=== PATIENT | female | born 1945 | race Caucasian/White ===

== ENCOUNTER 2016-05-03 10:20 | Observation (INO) | payer MEDICARE, BC ==
--- OUTSIDE RECORDS SUMMARY | 2016-05-03 10:24 | XMS REPORT | Continuity of Care Document ---
:1945 Author Organization [facility] ([facility]) Address [address] [place] [address] Phone [phone] Care Team Providers Name Role Phone Jacinta Mac Primary Care Provider [phone] Source Comments This disclosure is being made pursuant to the Care Everywhere program, applicable federal and state laws, and may not contain all informaitonavailable regarding this patient.[facility] ([facility]) Active Allergies and Adverse Reactions Allergen Noted Date Severity Reactions Comments Codeine 04/29/2010 OTHER Lorazepam 04/14/2010 OTHER Went francesco Current Medications Prescription Sig. Disp. Refills Start Date End Date Status gabapentin (NEURONTIN) Take 2,100 mg by Active 300 mg capsule mouth daily Taking 600 mg in the am 600 mg at noon and 900 mg in the pm clonazePAM (KLONOPIN) 1 Take 1 mg by Active mg tablet mouth at bedtime Taking 1 tab bid and 1.5 tabs qhs. LACTOBACILLUS RHAMNOSUS Take 1 Tab by Active GG (PROBIOTIC PO) mouth daily. MULTI-VITAMIN PO Take 1 Tab by Active mouth daily. POLYETHYLENE GLYCOL Take by mouth 2 Active 3350 (MIRALAX PO) times daily. 1 scoop ERGOCALCIFEROL, VITAMIN Take 2,000 Units Active D2, (VITAMIN D PO) by mouth daily DOCUSATE SODIUM (COLACE Take 2 tablets Active PO) by mouth 2 times daily 100 mg. traMADol 50 mg tablet Take 100 mg by Active mouth every 8 hours . VENLAFAXINE 75 mg XR Take 75 mg by 08/14/2014 Active capsule mouth daily VENLAFAXINE 150 mg XR Take 150 mg by 08/14/2014 Active capsule mouth daily VOLTAREN 1 % topical 03/25/2015 Active gel lamoTRIgine 200 mg at bedtime . 04/03/2015 Active tablet ranitidine 150 mg Take 1 tablet 60 tablet 6 05/26/2015 Active tablet (150 mg total) by mouth 2 times daily. lubiprostone (AMITIZA) Take 1 capsule 15 capsule 0 05/26/2015 Active 24 mcg capsule (24 mcg total) by mouth at bedtime Take with food and water. valACYclovir 500 mg 08/12/2015 Active tablet OXcarbazepine 150 mg 07/14/2015 Active tablet baclofen 10 mg tablet Take 1 tablet 30 tablet 1 08/27/2015 Active (10 mg total) by mouth at bedtime. TENS Units sandra 1 Device 3 times 1 Each 0 08/27/2015 Active daily as needed. Active Problems Problem Noted Date Lactose intolerance 08/20/2015 Fructose intolerance 08/20/2015 Epigastric abdominal pain 05/21/2015 Ovarian cyst 08/01/2011 Overview: Stable over one year Bipolar disorder 02/24/2011 Constipation 02/24/2011 Bile-induced gastritis 02/24/2011 Intestinal bacterial overgrowth 02/24/2011 Most Recent Encounters Date Type Specialty Providers Description 04/20/2016 Telephone Food and Nutrition Chinyere Sharma RD LD 04/20/2016 Telephone Med GI/Hepatology Elvia Clancy RN Chief Comp: Nutritional Intake 03/02/2016 Office Visit Anesthesiology Reed Reyes MD Subj: Appointment Canceled 02/25/2016 Office Visit Med GI/Hepatology Corina Wright MD Chief Comp: Patient Reported Reason For Visit Social History Tobacco Use Types Packs/Day Years Used Date Never Smoker Smokeless Tobacco: Never Used Tobacco Cessation:Counseling Given: Yes Comments: Alcohol Use Drinks/Week oz/Week Comments No Last Filed Vital Signs Vital Sign Reading Time Taken Blood Pressure 152/77 10/09/2015 1:23 PM CDT Pulse 74 10/09/2015 11:27 AM CDT Temperature 36.1 C (97 F) 10/09/2015 11:27 AM CDT Respiratory Rate 18 11/20/2010 5:31 PM CDT Height 1.575 m (5' 2") 10/09/2015 11:27 AM CDT Weight 45.9 kg (101 lb 3.1 oz) 10/09/2015 11:27 AM CDT Body Mass Index 18.5 10/09/2015 11:27 AM CDT Oxygen Saturation 98% 10/09/2015 1:23 PM CDT Plan of Care Health Maintenance Due Date Last Done Comments Hepatitis B Vaccine (1 of 3 - Primary 1945 Series) Tdap Vaccine 10/27/1954 Lipid Disorder Screening 10/27/1961 Td Vaccine 10/27/1961 Zoster Vaccine 2003 Osteoporosis Screening (DXA Bone 10/27/2008 Density) Pneumococcal Vaccine (1 of 2 - PCV13) 10/27/2008 Influenza Vaccine: Seasonal (#1) 10/13/2015 Mammogram 11/01/2015 10/31/2014 (Previously completed), 10/31/2014, 10/25/2013 (Previously completed) Colonoscopy 11/25/2020 11/25/2010 Results from Last 3 Months Not on file
--- OUTSIDE RECORDS SUMMARY | 2016-05-03 10:25 | XMS REPORT | Summary of Care ---
:1945 Author Organization [facility] Address [address] [place] [address] Care Team Providers Name Role Phone Jacinta Mac Primary Care Physician Encounter Date(s): 08/07/15 - 08/07/15 [facility] Marlee Alberts, [address] [place], [place] [address] Discharge Diagnosis: Lumbar spondylosis Discharge Disposition: 01 Discharged to Home or Self Care Attending Physician: Jose L Lanza MD Referring Physician: Dorian Kyle MD Vital Signs Most recent to oldest [Reference Range]: 1 Blood Pressure [90-130/60-90 mmHg] 126/74mmHg (08/07/15 9:51 AM) Mean Arterial Pressure, Cuff 91 mmHg (08/07/15 9:51 AM) Most recent to oldest [Reference Range]: 1 Height/Length Measured 157 cm (08/07/15 9:51 AM) Weight Dosing 44.90 kg1 (08/07/15 10:02 AM) Weight Measured 44.9 kg (08/07/15 9:51 AM) BSA Measured 1.41 m2 (08/07/15 9:51 AM) Body Mass Index Measured 18.22 kg/m2 (08/07/15 9:51 AM) 1Result Comment: This result was because the dosing weight was either not entered or it is>30 days old. This result is based off: Weight Measured August 07, 2015 09:51:00 CDT by Chiqui Muro LPN Problem List Condition Effective Dates Status Health Status Informant Bacterial overgrowth Active syndrome(Confirmed) Colitis(Confirmed) Active Fibromyalgia(Confirmed) Active Fracture of wrist(Confirmed)1 2007 Active IBS - Irritable bowel Active syndrome(Confirmed) Miscellaneous(Confirmed)2 Active 1right [id number] overgrowth of small intestine Allergies, Adverse Reactions, Alerts Substance Reaction Severity Status codeine Trouble Breathing Active LORazepam Active Medications Carafate 1 g oral tablet 1 tab(s), Oral, QID, # 120 tab(s), 0 Refill(s), Start Date: 05/14/15 14:17:00 BUILDING CONSULTANT Start Date: 05/14/15 Stop Date: 08/07/15 Status: Completedciprofloxacin 500 mg oral tablet 1 tab(s), Oral, q12hr, # 14 tab(s), 0 Refill(s), Start Date: 04/24/15 14:13:00 BUILDING CONSULTANT Start Date: 04/24/15 Stop Date: 05/14/15 Status: CompletedclonazePAM 1 mg oral tablet 1.5 tab(s), Oral, HS, 0 Refill(s), Start Date: 09/17/13 10:32:00 CDT Start Date: 09/17/13 Status: OrderedColace 50 mg oral capsule 1 cap(s), Oral, BID Start Date: 03/19/14 Status: OrderedDME - Thumb Spica Splint See Instructions, Diagnosis Code: Length of Need: , # 1 EA, 0 Refill(s), 02/14/14 14:46:00 BUILDING CONSULTANT, Supply Special Instructions: Diagnosis Code: Length of Need: Start Date: 02/14/14 Stop Date: 05/14/15 Status: CompletedDME - Thumb Spica Splint See Instructions, Diagnosis Code: Length of Need: , # 1 EA, 0 Refill(s), 02/14/14 14:46:00 BUILDING CONSULTANT, Supply Special Instructions: Diagnosis Code: Length of Need: Start Date: 02/14/14 Stop Date: 05/14/15 Status: CompletedEffexor XR 150 mg oral capsule, extended release 1 cap(s), Oral, Daily Start Date: 03/19/14 Status: OrderedEffexor XR 75 mg oral capsule, extended release 1 cap(s), Oral, Daily Start Date: 03/19/14 Status: OrderedFlexeril 5 mg oral tablet 1 tab(s), Oral, HS, PRN as needed for muscle spasm, # 30 tab(s), 1 Refill(s), Start Date: 07/16/15 10:39:00 CDT, Pharmacy: [place], [place] Start Date: 07/16/15 Status: OrderedFlexeril 5 mg oral tablet 1 tab(s), Oral, HS, # 10 tab(s), 0 Refill(s), Start Date: 06/24/15 10:24:00 CDT , Pharmacy: [place], [place] Start Date: 06/24/15 Stop Date: 07/16/15 Status: Completedgabapentin 300 mg oral capsule 1 cap(s), Oral, TID, # 90 cap(s), 3 Refill(s), Start Date: 07/16/15 10:38:00 CDT , Pharmacy: [place], [place] Start Date: 07/16/15 Stop Date: 07/29/15 Status: Completedgabapentin 300 mg oral capsule See Instructions, take 1 - 2 Capsule (300MG) by oral route every 6 hours, 0 Refill(s) Special Instructions: take 1 - 2 Capsule (300MG) by oral route every 6 hours Start Date: 09/17/13 Stop Date: 07/16/15 Status: Discontinuedgabapentin 300 mg oral capsule 5 cap(s), Oral, Daily, Take 1 tab in the morning, 1 tab in the afternoon, and 3 tabs at bedtime daily., # 150 cap(s), 3 Refill(s), Start Date: 07/29/15 12:07: 24 CDT, Pharmacy: [place], [place] Special Instructions: Take 1 tab in the morning, 1 tab in the afternoon, and 3 tabs at bedtime daily. Start Date: 07/29/15 Status: OrderedHYDROcodone-acetaminophen 5 mg-325 mg oral tablet 2 tab(s), Oral, q4hr, # 12 tab(s), 0 Refill(s), Start Date: 05/14/15 14:18:00 BUILDING CONSULTANT Start Date: 05/14/15 Stop Date: 05/16/15 Status: CompletedlamoTRIgine 200 mg oral tablet 1.5 tab(s), Oral, Daily, 0 Refill(s), Start Date: 09/17/13 10:33:00 CDT Start Date: 09/17/13 Status: Orderedmeloxicam 15 mg oral tablet 1 tab(s), Oral, Daily, PRN PAIN, # 30 tab(s), 0 Refill(s), Start Date: 02/20/14 16:12:55 BUILDING CONSULTANT, Pharmacy: [place], [place] Start Date: 02/20/14 Stop Date: 06/21/14 Status: Completedmeloxicam 15 mg oral tablet 1 tab(s), Oral, Daily, PRN PAIN, # 30 tab(s), 0 Refill(s), Start Date: 02/18/14 13:20:40 BUILDING CONSULTANT, Pharmacy: [place], [place] Start Date: 02/18/14 Stop Date: 02/20/14 Status: Completedmeloxicam 15 mg oral tablet 1 tab(s), Oral, Daily, PRN pain, # 90 tab(s), 3 Refill(s), Start Date: 06/21/14 11:34:57 CDT, Pharmacy: [place], [place] Start Date: 06/21/14 Stop Date: 04/24/15 Status: Completedmeloxicam 15 mg oral tablet 1 tab(s), Oral, Daily, # 10 tab(s), 0 Refill(s), Start Date: 02/14/14 14:52:00 BUILDING CONSULTANT, Pharmacy: [place], [place] Start Date: 02/14/14 Stop Date: 02/18/14 Status: CompletedmetroNIDAZOLE 500 mg oral tablet 1 tab(s), Oral, Daily, # 10 tab(s), 0 Refill(s), Start Date: 04/24/15 14:13:00 BUILDING CONSULTANT Start Date: 04/24/15 Stop Date: 05/14/15 Status: CompletedMiraLax oral powder for reconstitution 17 gm=, Oral, BID, dissolve in water before taking Special Instructions: dissolve in water before taking Start Date: 03/19/14 Status: OrderedOXcarbazepine 150 mg oral tablet 1 tab(s), Oral, BID, # 60 tab(s), 0 Refill(s), Start Date: 07/16/15 9:42:00 CDT Start Date: 07/16/15 Stop Date: 08/07/15 Status: CompletedoxyCODONE-acetaminophen 5 mg-325 mg oral tablet 0 Refill(s), Start Date: 04/24/15 14:12:00 BUILDING CONSULTANT Start Date: 04/24/15 Stop Date: 05/14/15 Status: CompletedpredniSONE 5 mg oral tablet See Instructions, 2 tabs po daily for 1 weeks then 1 tab daily for 3 weeks, # 28 tab(s), 0 Refill(s), Start Date: 03/25/15 11:36:00 BUILDING CONSULTANT, Pharmacy: [facility] [place] [place] Special Instructions: 2 tabs po daily for 1 weeks then 1 tab daily for 3 weeks Start Date: 03/25/15 Stop Date: 05/08/15 Status: DiscontinuedPriLOSEC 40 mg oral delayed release capsule 1 cap(s), Oral, Daily, # 30 cap(s), 0 Refill(s), Start Date: 05/14/15 14:18:00 BUILDING CONSULTANT Start Date: 05/14/15 Status: OrderedProbiotic Formula oral capsule 2 cap(s), Oral, Daily Start Date: 03/19/14 Status: OrderedtraMADol 50 mg oral tablet 1 tab(s), Oral, Daily, PRN for pain Start Date: 09/27/13 Stop Date: 08/07/15 Status: DiscontinuedtraMADol 50 mg oral tablet 1 tab(s), Oral, q6hr interval, PRN for pain, # 90 tab(s), 0 Refill(s), Start Date: 08/07/15 11:08:48 CDT Start Date: 08/07/15 Status: OrderedtraMADol 50 mg oral tablet 1 tab(s), Oral, q6hr interval, PRN for pain, # 5 tab(s), 0 Refill(s), Start Date : 08/07/15 11:06:00 CDT Start Date: 08/07/15 Stop Date: 08/07/15 Status: DiscontinuedVitamin D3 2000 intl units oral tablet 1 tab(s), Oral, Daily Start Date: 03/19/14 Status: OrderedVoltaren 1% topical gel 1 kendrick, Topical, QID, PRN for pain, not to exceed 8 grams/day/single joint of upper extremities. Apply grams to effected area, # 100 gm, 0 Refill(s), Start Date: 03/25/15 11:37:55 BUILDING CONSULTANT, Pharmacy: [place], [place] Special Instructions: not to exceed 8 grams/day/single joint of upper extremities. Apply grams to effected area Start Date: 03/25/15 Status: OrderedVoltaren 1% topical gel 1 kendrick, Topical, QID, PRN for pain, # 100 gm, 0 Refill(s), Start Date: 05/14/15 10:50:00 BUILDING CONSULTANT Start Date: 05/14/15 Stop Date: 06/24/15 Status: CompletedVoltaren Topical 1% topical gel 1 kendrick, Topical, QID, PRN for pain, not to exceed 8 grams/day/single joint of upper extremities. Apply grams to effected area, # 100 gm, 0 Refill(s), Start Date: 02/14/14 14:53:00 BUILDING CONSULTANT, Pharmacy: [place], [place] Special Instructions: not to exceed 8 grams/day/single joint of upper extremities. Apply grams to effected area Start Date: 02/14/14 Stop Date: 03/25/15 Status: CompletedZofran ODT 4 mg oral tablet, disintegrating 1 tab(s), Oral, q8hr interval, PRN nausea/vomiting, # 10 tab(s), 0 Refill(s), Start Date: 05/14/15 14:17:00 BUILDING CONSULTANT Start Date: 05/14/15 Stop Date: 08/07/15 Status: Completed Results No data available for this section Immunizations No data available for this section Procedures Procedure Date Related Diagnosis Body Site Epidural Steroid Injection - Lumbar1 03/21/14 Cholecystectomy 1958 1auto-populated from documented surgical case Social History No data available for this section Assessment and Plan No data available for this section
--- OUTSIDE RECORDS SUMMARY | 2016-05-03 10:25 | XMS REPORT | Summary of Care ---
:1945 Author Organization [facility] Address [address] [place] [address] Care Team Providers Name Role Phone Jacinta Mac Primary Care Physician Encounter Date(s): 08/07/15 - 08/07/15 [facility] Marlee Alberts, [address] [place], [place] [address] Discharge Diagnosis: Lumbar spondylosis Discharge Disposition: 01 [...] Irritable bowel Active syndrome(Confirmed) Miscellaneous(Confirmed)2 Active 1right [id number] overgrowth of small intestine Allergies, Adverse Reactions, Alerts Substance Reaction Severity Status codeine Trouble Breathing Active LORazepam Active Medications Carafate 1 g oral tablet 1 tab(s), Oral, QID, # 120 tab(s), 0 Refill(s), Start Date: 05/14/15 14:17:00 ASSET SPECIALIST Start Date: 05/14/15 Stop Date: 08/07/15 Status: Completedciprofloxacin 500 mg oral tablet 1 tab(s), Oral, q12hr, # 14 tab(s), 0 Refill(s), Start Date: 04/24/15 14:13:00 ASSET SPECIALIST Start Date: 04/24/15 Stop Date: 05/14/15 Status: CompletedclonazePAM 1 mg oral tablet 1.5 tab(s), Oral, HS, 0 Refill(s), Start Date: 09/17/13 10:32:00 CDT Start Date: 09/17/13 Status: OrderedColace 50 mg oral capsule 1 cap(s), Oral, BID Start Date: 03/19/14 Status: OrderedDME - Thumb Spica Splint See Instructions, Diagnosis Code: Length of Need: , # 1 EA, 0 Refill(s), 02/14/14 14:46:00 ASSET SPECIALIST, Supply Special Instructions: Diagnosis Code: Length of Need: Start Date: 02/14/14 Stop Date: 05/14/15 Status: CompletedDME - Thumb Spica Splint See Instructions, Diagnosis Code: Length of Need: , # 1 EA, 0 Refill(s), 02/14/14 14:46:00 ASSET SPECIALIST, Supply Special Instructions: Diagnosis Code: Length of [...] Refill(s), Start Date: 07/16/15 10:39:00 CDT, Pharmacy: [place], [place] Start Date: 07/16/15 Status: OrderedFlexeril 5 mg oral tablet 1 tab(s), Oral, HS, # 10 tab(s), 0 Refill(s), Start Date: 06/24/15 10:24:00 CDT , Pharmacy: [place], [place] Start Date: 06/24/15 Stop Date: 07/16/15 Status: Completedgabapentin 300 mg oral capsule 1 cap(s), Oral, TID, # 90 cap(s), 3 Refill(s), Start Date: 07/16/15 10:38:00 CDT , Pharmacy: [place], [place] Start Date: 07/16/15 Stop Date: 07/29/15 [...] Start Date: 07/29/15 12:07: 24 CDT, Pharmacy: [place], [place] Special Instructions: Take 1 tab in the morning, 1 tab in the afternoon, and 3 tabs at bedtime daily. Start Date: 07/29/15 Status: OrderedHYDROcodone-acetaminophen 5 mg-325 mg oral tablet 2 tab(s), Oral, q4hr, # 12 tab(s), 0 Refill(s), Start Date: 05/14/15 14:18:00 ASSET SPECIALIST Start Date: 05/14/15 Stop Date: 05/16/15 Status: CompletedlamoTRIgine 200 mg oral tablet 1.5 tab(s), Oral, Daily, 0 Refill(s), Start Date: 09/17/13 10:33:00 CDT Start Date: 09/17/13 Status: Orderedmeloxicam 15 mg oral tablet 1 tab(s), Oral, Daily, PRN PAIN, # 30 tab(s), 0 Refill(s), Start Date: 02/20/14 16:12:55 ASSET SPECIALIST, Pharmacy: [place], [place] Start Date: 02/20/14 Stop Date: 06/21/14 Status: Completedmeloxicam 15 mg oral tablet 1 tab(s), Oral, Daily, PRN PAIN, # 30 tab(s), 0 Refill(s), Start Date: 02/18/14 13:20:40 ASSET SPECIALIST, Pharmacy: [place], [place] Start Date: 02/18/14 Stop Date: 02/20/14 Status: Completedmeloxicam 15 mg oral tablet 1 tab(s), Oral, Daily, PRN pain, # 90 tab(s), 3 Refill(s), Start Date: 06/21/14 11:34:57 CDT, Pharmacy: [place], [place] Start Date: 06/21/14 Stop Date: 04/24/15 Status: Completedmeloxicam 15 mg oral tablet 1 tab(s), Oral, Daily, # 10 tab(s), 0 Refill(s), Start Date: 02/14/14 14:52:00 ASSET SPECIALIST, Pharmacy: [place], [place] Start Date: 02/14/14 Stop Date: 02/18/14 Status: CompletedmetroNIDAZOLE 500 mg oral tablet 1 tab(s), Oral, Daily, # 10 tab(s), 0 Refill(s), Start Date: 04/24/15 14:13:00 ASSET SPECIALIST Start Date: 04/24/15 Stop Date: 05/14/15 Status: [...] tablet 0 Refill(s), Start Date: 04/24/15 14:12:00 ASSET SPECIALIST Start Date: 04/24/15 Stop Date: 05/14/15 Status: CompletedpredniSONE 5 mg oral tablet See Instructions, 2 tabs po daily for 1 weeks then 1 tab daily for 3 weeks, # 28 tab(s), 0 Refill(s), Start Date: 03/25/15 11:36:00 ASSET SPECIALIST, Pharmacy: [facility] [place], [place] Special Instructions: 2 tabs po daily for 1 weeks then 1 tab daily for 3 weeks Start Date: 03/25/15 Stop Date: 05/08/15 Status: DiscontinuedPriLOSEC 40 mg oral delayed release capsule 1 cap(s), Oral, Daily, # 30 cap(s), 0 Refill(s), Start Date: 05/14/15 14:18:00 ASSET SPECIALIST Start Date: 05/14/15 Status: OrderedProbiotic Formula oral [...] gm, 0 Refill(s), Start Date: 03/25/15 11:37:55 ASSET SPECIALIST, Pharmacy: [place], [place] Special Instructions: not to exceed 8 grams/day/single joint of upper extremities. Apply grams to effected area Start Date: 03/25/15 Status: OrderedVoltaren 1% topical gel 1 kendrick, Topical, QID, PRN for pain, # 100 gm, 0 Refill(s), Start Date: 05/14/15 10:50:00 ASSET SPECIALIST Start Date: 05/14/15 Stop Date: 06/24/15 Status: CompletedVoltaren Topical 1% topical gel 1 kendrick, Topical, QID, PRN for pain, not to exceed 8 grams/day/single joint of upper extremities. Apply grams to effected area, # 100 gm, 0 Refill(s), Start Date: 02/14/14 14:53:00 ASSET SPECIALIST, Pharmacy: [place], [place] Special Instructions: not to exceed 8 grams/day/single joint of upper extremities. Apply grams to effected area Start Date: 02/14/14 Stop Date: 03/25/15 Status: CompletedZofran ODT 4 mg oral tablet, disintegrating 1 tab(s), Oral, q8hr interval, PRN nausea/vomiting, # 10 tab(s), 0 Refill(s), Start Date: 05/14/15 14:17:00 ASSET SPECIALIST Start Date: 05/14/15 Stop Date: 08/07/15 Status: [...]
--- OUTSIDE RECORDS SUMMARY | 2016-05-03 10:25 | XMS REPORT | Summary of Care ---
:1945 Author Organization [facility] Address [address] [place] [address] Care Team Providers Name Role Phone Jacinta Mac Primary Care Physician Encounter Date(s): 04/02/16 - 04/02/16 [facility] Marlee Alberts, [address] [place], [place] [address] Discharge Disposition: 01 Discharged to Home or Self Care Attending Physician: Dorian Kyle MD Referring Physician: Unknown Physician Vital Signs Most recent to oldest [Reference Range]: 1 Peripheral Pulse Rate [60-100 bpm] 76 bpm (04/02/16 8:58 AM) Blood Pressure [90-130/60-90 mmHg] 130/80mmHg (04/02/16 8:58 AM) Mean Arterial Pressure, Cuff 97 mmHg (04/02/16 8:58 AM) Height/Length Measured 157 cm (04/02/16 8:58 AM) Weight Dosing 48.60 kg1 (04/02/16 9:03 AM) Weight Measured 48.6 kg (04/02/16 8:58 AM) BSA Measured 1.46 m2 (04/02/16 8:58 AM) Body Mass Index Measured 19.72 kg/m2 (04/02/16 8:58 AM) 1Result Comment: This result was because the dosing weight was either not entered or it is>30 days old. This result is based off: Weight Measured April 02, 2016 08:58:00 EVENT DESIGNER by Toyin Toscano CMA Problem List Condition Effective Dates Status Health Status Informant Bacterial overgrowth Active syndrome(Confirmed) Colitis(Confirmed) Active Fibromyalgia(Confirmed) Active Fracture of wrist(Confirmed)2007 Active IBS - Irritable bowel Active syndrome(Confirmed) Miscellaneous(Confirmed)2 Active 1right [id number] overgrowth of small intestine Allergies, Adverse Reactions, Alerts Substance Reaction Severity Status codeine Trouble Breathing Active LORazepam Active Medications Carafate 1 g oral tablet 1 tab(s), Oral, QID, # 120 tab(s), 0 Refill(s), Start Date: 05/14/15 14:17:00 EVENT DESIGNER Start Date: 05/14/15 Stop Date: 08/07/15 Status: Completedciprofloxacin 500 mg oral tablet 1 tab(s), Oral, q12hr, # 14 tab(s), 0 Refill(s), Start Date: 04/24/15 14:13:00 EVENT DESIGNER Start Date: 04/24/15 Stop Date: 05/14/15 Status: CompletedclonazePAM 1 mg oral tablet 1.5 tab(s), Oral, HS, 0 Refill(s), Start Date: 09/17/13 10:32:00 CDT Start Date: 09/17/13 Status: OrderedColace 50 mg oral capsule 1 cap(s), Oral, BID Start Date: 03/19/14 Status: OrderedDME - Thumb Spica Splint See Instructions, Diagnosis Code: Length of Need: , # 1 EA, 0 Refill(s), 02/14/14 14:46:00 EVENT DESIGNER, Supply Start Date: 02/14/14 Stop Date: 05/14/15 Status: CompletedDME - Thumb Spica Splint See Instructions, Diagnosis Code: Length of Need: , # 1 EA, 0 Refill(s), 02/14/14 14:46:00 EVENT DESIGNER, Supply Start Date: 02/14/14 Stop Date: 05/14/15 Status: CompletedEffexor XR 150 mg oral capsule, extended release 1 cap(s), Oral, Daily Start Date: 03/19/14 Status: OrderedEffexor XR 75 mg oral capsule, extended release 1 cap(s), Oral, Daily Start Date: 03/19/14 Stop Date: 01/22/16 Status: CompletedFlexeril 5 mg oral tablet 1 tab(s), Oral, HS, PRN as needed for muscle spasm, # 30 tab(s), 1 Refill(s), Start Date: 07/16/15 10:39:00 CDT, Pharmacy: [place], [place] Start Date: 07/16/15 Stop Date: 12/24/15 Status: DiscontinuedFlexeril 5 mg oral tablet 1 tab(s), Oral, HS, # 10 tab(s), 0 Refill(s), Start Date: 06/24/15 10:24:00 CDT , Pharmacy: [place], [place] Start Date: 06/24/15 Stop Date: 07/16/15 Status: Completedgabapentin 100 mg oral capsule 1 cap(s), Oral, BID, 1 cap in the AM and 1 cap in the afternoon, # 60 cap(s), 0 Refill(s), Start Date: 09/29/15 11:39:00 CDT, Pharmacy: [facility], [place] Start Date: 09/29/15 Stop Date: 03/11/16 Status: Completedgabapentin 300 mg oral capsule 1 cap(s), Oral, TID, # 90 cap(s), 3 Refill(s), Start Date: 07/16/15 10:38:00 CDT , Pharmacy: [place], [place] Start Date: 07/16/15 Stop Date: 07/29/15 Status: Completedgabapentin 300 mg oral capsule 5 cap(s), Oral, Daily, Take 1 cap in the morning, 1 cap in the afternoon, and 3 cap at bedtime daily., # 150 cap(s), 3 Refill(s), Start Date: 09/29/15 11:31:58 CDT, Pharmacy: [facility], [place] Start Date: 09/29/15 Status: Orderedgabapentin 300 mg oral capsule 6 cap(s), Oral, Daily, Take 1.5 tab in the morning, 1.5 tab in the afternoon, and 3 tabs at bedtime daily., # 180 cap(s), 3 Refill(s), Start Date: 09/26/15 12 :59:14 CDT, Pharmacy: [facility], [place] Start Date: 09/26/15 Stop Date: 09/29/15 Status: Completedgabapentin 300 mg oral capsule See Instructions, take 1 - 2 Capsule (300MG) by oral route every 6 hours, 0 Refill(s) Start Date: 09/17/13 Stop Date: 07/16/15 Status: Discontinuedgabapentin 300 mg oral capsule 5 cap(s), Oral, Daily, Take 1 tab in the morning, 1 tab in the afternoon, and 3 tabs at bedtime daily., # 150 cap(s), 3 Refill(s), Start Date: 07/29/15 12:07: 24 CDT, Pharmacy: [place], [place] Start Date: 07/29/15 Stop Date: 09/26/15 Status: CompletedGaviscon 2 tab(s), Chewed, QIDPCHS, 0 Refill(s), Start Date: 01/22/16 9:12:00 EVENT DESIGNER Start Date: 01/22/16 Status: Orderedginger BID, 0 Refill(s), Start Date: 01/22/16 9:13:00 EVENT DESIGNER Start Date: 01/22/16 Status: OrderedHYDROcodone-acetaminophen 5 mg-325 mg oral tablet 2 tab(s), Oral, q4hr, # 12 tab(s), 0 Refill(s), Start Date: 05/14/15 14:18:00 EVENT DESIGNER Start Date: 05/14/15 Stop Date: 05/16/15 Status: CompletedKenalog (office) 40 units, Intra-articular, ONETIME, First Dose: 04/02/16 10:00:00 EVENT DESIGNER, Stop Date : 04/02/16 10:00:00 EVENT DESIGNER, Diagnosis: Pain in joint involving multiple sites Start Date: 04/02/16 Stop Date: 04/02/16 Status: CompletedlamoTRIgine 200 mg oral tablet 1.5 tab(s), Oral, Daily, 0 Refill(s), Start Date: 09/17/13 10:33:00 CDT Start Date: 09/17/13 Status: Orderedmeloxicam 15 mg oral tablet 1 tab(s), Oral, Daily, PRN PAIN, # 30 tab(s), 0 Refill(s), Start Date: 02/20/14 16:12:55 EVENT DESIGNER, Pharmacy: [place], [place] Start Date: 02/20/14 Stop Date: 06/21/14 Status: Completedmeloxicam 15 mg oral tablet 1 tab(s), Oral, Daily, PRN PAIN, # 30 tab(s), 0 Refill(s), Start Date: 02/18/14 13:20:40 EVENT DESIGNER, Pharmacy: [place], [place] Start Date: 02/18/14 Stop Date: 02/20/14 Status: Completedmeloxicam 15 mg oral tablet 1 tab(s), Oral, Daily, PRN pain, # 90 tab(s), 3 Refill(s), Start Date: 06/21/14 11:34:57 CDT, Pharmacy: [place], [place] Start Date: 06/21/14 Stop Date: 04/24/15 Status: Completedmeloxicam 15 mg oral tablet 1 tab(s), Oral, Daily, # 10 tab(s), 0 Refill(s), Start Date: 02/14/14 14:52:00 EVENT DESIGNER, Pharmacy: [place], [place] Start Date: 02/14/14 Stop Date: 02/18/14 Status: CompletedMetoprolol Succinate ER 50 mg oral tablet, extended release 1 tab(s), Oral, Daily, # 30 tab(s), 0 Refill(s), Start Date: 03/11/16 10:22:00 EVENT DESIGNER Start Date: 03/11/16 Status: OrderedmetroNIDAZOLE 500 mg oral tablet 1 tab(s), Oral, Daily, # 10 tab(s), 0 Refill(s), Start Date: 04/24/15 14:13:00 EVENT DESIGNER Start Date: 04/24/15 Stop Date: 05/14/15 Status: CompletedMiraLax oral powder for reconstitution 17 gm=, Oral, BID, dissolve in water before taking Start Date: 03/19/14 Status: OrderedOXcarbazepine 150 mg oral tablet 1 tab(s), Oral, BID, # 60 tab(s), 0 Refill(s), Start Date: 07/16/15 9:42:00 CDT Start Date: 07/16/15 Stop Date: 08/07/15 Status: CompletedoxyCODONE-acetaminophen 5 mg-325 mg oral tablet 0 Refill(s), Start Date: 04/24/15 14:12:00 EVENT DESIGNER Start Date: 04/24/15 Stop Date: 05/14/15 Status: CompletedpredniSONE 5 mg oral tablet See Instructions, 2 tabs po daily for 1 weeks then 1 tab daily for 3 weeks, # 28 tab(s), 0 Refill(s), Start Date: 03/25/15 11:36:00 EVENT DESIGNER, Pharmacy: [place], [place] Start Date: 03/25/15 Stop Date: 05/08/15 Status: DiscontinuedPriLOSEC 40 mg oral delayed release capsule 1 cap(s), Oral, Daily, # 30 cap(s), 0 Refill(s), Start Date: 05/14/15 14:18:00 EVENT DESIGNER Start Date: 05/14/15 Stop Date: 01/22/16 Status: DiscontinuedProbiotic Formula oral capsule 2 cap(s), Oral, Daily [...] gm, 0 Refill(s), Start Date: 03/25/15 11:37:55 EVENT DESIGNER, Pharmacy: [place], [place] Start Date: 03/25/15 Status: OrderedVoltaren 1% topical gel 1 kendrick, Topical, QID, PRN for pain, # 100 gm, 0 Refill(s), Start Date: 05/14/15 10:50:00 EVENT DESIGNER Start Date: 05/14/15 Stop Date: 06/24/15 Status: CompletedVoltaren Topical 1% topical gel 1 kendrick, Topical, QID, PRN for pain, not to exceed 8 grams/day/single joint of upper extremities. Apply grams to effected area, # 100 gm, 0 Refill(s), Start Date: 02/14/14 14:53:00 EVENT DESIGNER, [place] Start Date: 02/14/14 Stop Date: 03/25/15 Status: CompletedZofran ODT 4 mg oral tablet, disintegrating 1 tab(s), Oral, q8hr interval, PRN nausea/vomiting, # 10 tab(s), 0 Refill(s), Start Date: 05/14/15 14:17:00 EVENT DESIGNER Start Date: 05/14/15 Stop Date: 08/07/15 Status: [...]
[2016-05-03 10:40] LABS: Hemoglobin 13.1 gm/dL (12.5-16.0); Mean Cell Volume 91.8 fl (78-100); Mean Corpuscular Hemoglobin 30.8 pg (27-31); Mean Corpuscular Hgb Conc 33.6 g/dl (32-36); Mean Platelet Volume 8.6 fl (6.0-9.5); Neutrophil # 2.6 K/mm3 (1.3-6.0); Neutrophil % 54.1 % (42-75.0); Platelet Count 285 K/mm3 (150-450); Red Blood Count 4.25 M/mm3 (4.2-5.4); Red Cell Distribution Width 12.9 % (11.5-14.0); White Blood Count 4.7 K/mm3 (4.0-10.5)
[2016-05-03 10:54] LABS: ALT 28 U/L (19-67); AST 25 U/L (0-48); Albumin * 4.1 gm/dl (3.4-5.0); Alkaline Phosphatase * 61 U/L (50-170); Amylase * 60 U/L (25-115); Anion Gap 10.5 mmol/L (6.8-13.8); BUN/Creatinine Ratio 16.9 (9.0-21.6); Bilirubin Direct 0.1 mg/dL (0.0-0.3); Bilirubin, Total 0.3 mg/dL (0.0-1.1); Bilirubin,Indirect 0.2 mg/dL (0.1-0.7); Blood Urea Nitrogen 14 mg/dL (3-23); Calcium * 9.2 mg/dL (7.9-10.9); Carbon Dioxide 32.2 mmol/L (24-32.6); Chloride 95 mmol/L (97-106); Glucose * 79 mg/dL (70-110); Lipase 170 U/L (73-393); Potassium 3.7 mmol/L (3.4-4.6); Sodium 134 mmol/L (132-142); Total Protein 7.8 gm/dL (6.2-8.2)
--- OUTSIDE RECORDS SUMMARY | 2016-05-03 13:55 | XMS REPORT | Continuity of Care Document ---
:1945 Author Organization [facility] ([facility]) Address [address] [place] [address] Phone [phone] Care Team Providers Name Role Phone Jacinta Mac Primary Care Provider [phone] Source Comments This disclosure is being made pursuant to the Care Everywhere program, applicable federal and state laws, and may not contain all informaitonavailable regarding this patient.[facility] ([facility]) Active Allergies and Adverse Reactions Allergen Noted [...]
[2016-05-03] MEDS ORDERED: SUCRALFATE 1 G/10 ML UDC PO ONE (15:00)
[2016-05-03] MEDS ORDERED: MAG HYDROX/ALUMINUM HYD/SIMETH 30 ML UDC PO ONE (15:00)
[2016-05-03] MEDS ORDERED: LIDOCAINE HCL 20 ML UDC PO ONE (15:00)
[2016-05-03] MEDS: NORMAL SALINE 1,000 ML IV PRN (15:31)
[2016-05-03] MEDS ORDERED: BENZONATATE 100 MG CAPSULE PO PRN (16:44)
[2016-05-03] MEDS ORDERED: GABAPENTIN 300 MG CAPSULE PO PRN (16:44)
[2016-05-03] MEDS ORDERED: ONDANSETRON HCL 4 MG TABLET PO PRN (16:44)
[2016-05-03] MEDS ORDERED: traMADol HCL 50 MG TABLET PO PRN (16:44)
[2016-05-03] MEDS ORDERED: traZODone HCL 50 MG TABLET PO PRN ×2 (16:46→17:02)
--- NOTE | 2016-05-03 16:58 | HP ---
Chief Complaint - Chief Complaint Date of Service: 05/03/16 Time of Service: 13:00 Chief Complaint: Epigastric pain, headache History of Present Illness: Patient presented to clinic today for an acute sick visit with complaints of feeling "sick" at least 3 days per week. She complains of indigestion, headaches , nausea and insomnia. I completed outpatient bloodwork and an abdominal CT scan which were unremarkable. She returned to clinic and we ultimately made the decision to admit her for overnight observation. - Patient's Past Medical History Patient History - Medical: Anemia, Anxiety, Depression, Fibromyalgia, GERD, Osteoarthritis Patient History - Cardiac/Respiratory: Hypertension Patient History - Cancer: No Hx of Cancer Patient History - Surgical Procedures: Cholecystectomy Patient History - Other: None - Family History Mother Family History - Medical: Rheumatoid Arthritis - Social History Living Situations: spouse Abuse History: No History of abuse Psych History: No pertinent hx Smoking Status: Never smoker Have you smoked in the past 12 months: No Do you dip or chew tobacco: No Patient requests Smoking Cessation Consult: No Initiate information on Smoking Cessation: No Alcohol Use: none Drug Use: none - Immunizations Immunizations Up to Date: Yes Hx Pneumococcal Vaccination: Yes History of Influenza Vaccine: Yes Review Of Systems (GEN) - Review of Systems Generalized/Overall Review: Present: Weakness, Chills, Fatigue. Absent: Fever EENTM: Present: No Symptoms Reported. Absent: Blurred Vision, Double Vision, Ear Pain, Nose Congestion, Throat Pain Respiratory: Present: No Symptoms Reported. Absent: Cough, Shortness of Breath Cardiac: Present: No Symptoms Reported. Absent: Chest Pain, Edema, Palpitations Abdominal: Present: Nausea, Abdominal Pain. Absent: Vomiting, Hematemesis, Constipation, Diarrhea, Melena, Bright blood from rectum Genitourinary: Present: No Symptoms Reported. Absent: Burning Musculoskeletal: Present: No Symptoms Reported Neurological: Present: Headache, Anxiety Skin: Present: No Symptoms Reported Endocrine: Present: No Symptoms Reported Misc: All systems neg except as marked Immunizations: IMMUNIZATION HX Immunizations Up to Date Yes History of Influenza Vaccine Yes Hx Pneumococcal Vaccination Yes Allergies/Adverse Reactions: Allergies Allergy/AdvReac Type Severity Reaction Status Date / Time lorazepam [From Ativan] Allergy Intermediate Other Verified 04/23/15 18:51 codeine Allergy Verified 04/23/15 18:51 Home Medications: HOME MEDICATIONS Gabapentin [Gralise] 900 mg PO Q6H PRN 05/27/12 [Last Taken Unknown] Benzonatate [Tessalon] 200 mg PO TID PRN #30 cap 03/09/15 [Last Taken Unknown] L.acidoph & Paracasei,B.lactis [Probiotic] 1 each PO BID 03/09/15 [Last Taken Unknown] Lamotrigine [Lamictal] 300 mg PO DAILY 03/09/15 [Last Taken Unknown] Polyethylene Glycol 3350 [Miralax] 17 gm PO BID 03/09/15 [Last Taken Unknown] Venlafaxine HCl [Effexor Xr] 150 mg PO DAILY 03/09/15 [Last Taken Unknown] clonazePAM [Klonopin] 1 mg PO BID 03/09/15 [Last Taken Unknown] traMADol HCL [Ultram] 50 mg PO Q6H PRN 03/09/15 [Last Taken Unknown] Metoprolol Succinate [Toprol Xl] 50 mg PO DAILY 05/03/16 [Last Taken Unknown] Omeprazole Magnesium [Prilosec Otc] 20 mg PO DAILY 05/03/16 [Last Taken Unknown] Ondansetron HCl [Zofran] 4 mg PO QID PRN 05/03/16 [Last Taken Unknown] Exam - Exam Vital Signs: Vital Signs - Last Taken Temp 36.4 C L 05/03/16 13:56 Pulse 55 L 05/03/16 13:56 Resp 20 05/03/16 13:56 BP 189/85 05/03/16 13:56 Pulse Ox 98 05/03/16 13:56 Constitutional: Present: Alert, Oriented x3, Cooperative, Mild distress, Thin and frail ENT Exam: Present: normal ENT inspection, hearing grossly normal, moist mucous membranes Eye Exam: bilateral eye: normal inspection, PERRL, EOMI Neck: Present: non-tender, supple, normal inspection Back Exam: Present: normal inspection, no CVA tenderness Respiratory: Present: lungs clear, normal breath sounds, no respiratory distress , no accessory muscle use Cardiovascular/Chest: Present: regular rate, rhythm, no edema, no JVD, no murmur Abdomen: Present: Normal bowel sounds, soft, nondistended, no rebound tenderness , no hepatospenomegaly, no masses, tender - Diffusely tender with palpation; most severe tenderness located in the epigastric region. Absent: guarding, rigidity, rebound tenderness, CVA tenderness, suprapubic tenderness Extremity: Present: normal range of motion, no pedal edema Skin Exam: Present: normal color, warm/dry Neurologic: Present: no motor/sensory deficits, alert, normal mood/affect, oriented x 3 Appearance: Present: appropriate appearance, appropriate insight, neat Eye contact: Present: cooperative, good eye contact, normal speech Thoughts: Present: normal thought pattern, no apparent hallucination Diagnostic Studies: Abnormal Lab Results 05/03/16 05/03/16 Range/Units 10:25 10:25 Monocytes % 10.2 H (0.0-9) % Chloride 95 L (97-106) mmol/L Laboratory Results WBC 4.7 K/mm3 (4.0-10.5) 05/03/16 10:25 RBC 4.25 M/mm3 (4.2-5.4) 05/03/16 10:25 Hgb 13.1 gm/dL (12.5-16.0) 05/03/16 10:25 Hct 39.0 % (37.0-47.0) 05/03/16 10:25 MCV 91.8 fl (78-100) 05/03/16 10:25 MCH 30.8 pg (27-31) 05/03/16 10:25 MCHC 33.6 g/dl (32-36) 05/03/16 10:25 RDW 12.9 % (11.5-14.0) 05/03/16 10:25 Plt Count 285 K/mm3 (150-450) 05/03/16 10:25 MPV 8.6 fl (6.0-9.5) 05/03/16 10:25 Immature Gran % (Auto) 0.40 % (0.001-0.429) 05/03/16 10:25 Immature Gran # (Auto) 0.02 K/mm3 (0.000-0.0310) 05/03/16 10:25 Neutrophils % 54.1 % (42-75.0) 05/03/16 10:25 Lymphocytes % 32.6 % (20-51) 05/03/16 10:25 Monocytes % 10.2 % (0.0-9) H 05/03/16 10:25 Eosinophils % 2.1 % (0.0-3.0) 05/03/16 10:25 Basophils % 0.6 % (0.0-1.0) 05/03/16 10:25 Nucleated RBC % 0.0 k/mm3 (0-1) 05/03/16 10:25 Neutrophils # 2.6 K/mm3 (1.3-6.0) 05/03/16 10:25 Lymphocytes # 1.5 k/mm3 (1.5-3.5) 05/03/16 10:25 Monocytes # 0.5 k/mm3 (0.0-1.0) 05/03/16 10:25 Eosinophils # 0.1 k/mm3 (0.0-0.7) 05/03/16 10:25 Absolute Basophils 0.0 k/mm3 (0.0-0.1) 05/03/16 10:25 Sodium 134 mmol/L (132-142) 05/03/16 10:25 Plasma Sodium 134 mmol/L (130-142) 05/03/16 10:25 Potassium 3.7 mmol/L (3.4-4.6) 05/03/16 10:25 Chloride 95 mmol/L (97-106) L 05/03/16 10:25 Carbon Dioxide 32.2 mmol/L (24-32.6) 05/03/16 10:25 Anion Gap 10.5 mmol/L (6.8-13.8) 05/03/16 10:25 BUN 14 mg/dL (3-23) 05/03/16 10:25 Creatinine 0.83 mg/dL (0.4-1.4) 05/03/16 10:25 Est GFR (Non-Af Amer) 72 mL/min (60-130) 05/03/16 10:25 BUN/Creatinine Ratio 16.9 (9.0-21.6) 05/03/16 10:25 Random Glucose 79 mg/dL (70-110) 05/03/16 10:25 Calcium 9.2 mg/dL (7.9-10.9) 05/03/16 10:25 Total Bilirubin 0.3 mg/dL (0.0-1.1) 05/03/16 10:25 Direct Bilirubin 0.1 mg/dL (0.0-0.3) 05/03/16 10:25 Indirect Bilirubin 0.2 mg/dL (0.1-0.7) 05/03/16 10:25 AST 25 U/L (0-48) 05/03/16 10:25 ALT 28 U/L (19-67) 05/03/16 10:25 Alkaline Phosphatase 61 U/L (50-170) 05/03/16 10:25 Total Protein 7.8 gm/dL (6.2-8.2) 05/03/16 10:25 Albumin 4.1 gm/dl (3.4-5.0) 05/03/16 10:25 Amylase 60 U/L (25-115) 05/03/16 10:25 Lipase 170 U/L (73-393) 05/03/16 10:25 Assessment/Plan - Narrative Narrative: Patient admitted from clinic for overnight observation. CT scan and bloodwork unremarkable. Orders placed for GI cocktail and patient states she has had minimal improvement. Orders placed for IV benadryl, compazine and decadron and monitor for improvement in headache. Continue IVFs. Likely discharge in AM pending improvement in symptoms. - Assessment/Plan (1) Epigastric abdominal pain Problem: Acute (2) Headache Problem: Acute
[2016-05-03] MEDS ORDERED: DEXAMETHASONE SOD PHOSPHATE 10 MG/ML VIAL IV ONE (17:15)
[2016-05-03] MEDS ORDERED: PROCHLORPERAZINE EDISYLATE 5 MG/ML VIAL IV ONE (17:15)
[2016-05-03] MEDS ORDERED: diphenhydrAMINE HCL 50 MG/ML VIAL IV ONE (17:15)
[2016-05-03] MEDS: POLYETHYLENE GLYCOL 3350 119 GM BTL PO SCH (21:47)
[2016-05-03] MEDS: clonazePAM 1 MG TABLET PO SCH (21:54)
[2016-05-03] MEDS: lamoTRIgine 100 MG TABLET PO SCH (21:54)
[2016-05-03] MEDS: LACTOBACILLUS ACIDOPHILUS 100 CAP BTL PO SCH (21:55)
[2016-05-04 00:42] VITALS: BP 141/63
[2016-05-04] MEDS: NORMAL SALINE 1,000 ML IV PRN (04:31)
[2016-05-04] MEDS ORDERED: PANTOPRAZOLE SODIUM 20 MG TABLET.DR PO SCH (07:00)
[2016-05-04] MEDS: LACTOBACILLUS ACIDOPHILUS 100 CAP BTL PO SCH (08:49)
[2016-05-04] MEDS: POLYETHYLENE GLYCOL 3350 119 GM BTL PO SCH (08:49)
[2016-05-04] MEDS: lamoTRIgine 100 MG TABLET PO SCH (08:50)
[2016-05-04] MEDS: clonazePAM 1 MG TABLET PO SCH (08:50)
[2016-05-04] MEDS ORDERED: VENLAFAXINE HCL 150 MG CAP.SR.24H PO SCH (09:00)
[2016-05-04] MEDS ORDERED: METOPROLOL SUCCINATE 50 MG TABLET.SA PO SCH (09:00)
--- NOTE | 2016-05-04 10:09 | DS ---
(1) Epigastric abdominal pain Diagnosis(s): Acute on Chronic Problem: Acute (2) Headache Problem: Acute Description of Stay: ADMISSION DATE: 05.03.2016 DISCHARGE DATE: 05.04.2016 HOSPITAL COURSE: Patient admitted from clinic for overnight observation. CT scan and bloodwork completed prior to admission unremarkable. Patient received a GI cocktail with minimal improvement. Patient was also given a migraine cocktail of IV benadryl, compazine and decadron with some improvement in headache. Patient discharged home in stable condition. Arrangements made for appointment with Dr. Sheridan to discuss having an EGD for further evaluation. Procedures Performed: none Discharge Disposition: Home self care Disposition: Home self-care Condition: Stable Discharge Activity: Activity as tolerated Discharge Diet: Resume usual diet Referrals: Maribel Rose DO [Primary Care Provider] - Problem Oriented Discharge Instructions to Patient/Family: Abdominal Pain, Adult, [id number], Gastroesophageal Reflux Disease, Adult, [id number] Additional Patient Instructions (free text): Please schedule patient to see PCP, Dr. Rose, within the next 1 week on @ 2:15pm. See Dr. Sheridan in his office on , 05.06.2016, at 10:00AM to discuss and schedule an EGD. Clinic is located at [address] [place] [address] Complete Home Medications List: Complete Home Medication List: Gabapentin [Gralise] 900 mg PO Q6H PRN 05/27/12 Benzonatate [Tessalon] 200 mg PO TID PRN #30 cap 03/09/15 L.acidoph & Paracasei,B.lactis [Probiotic] 1 each PO BID 03/09/15 Lamotrigine [Lamictal] 300 mg PO DAILY 03/09/15 Polyethylene Glycol 3350 [Miralax] 17 gm PO BID 03/09/15 Venlafaxine HCl [Effexor Xr] 150 mg PO DAILY 03/09/15 clonazePAM [Klonopin] 1 mg PO BID 03/09/15 traMADol HCL [Ultram] 50 mg PO Q6H PRN 03/09/15 Metoprolol Succinate [Toprol Xl] 50 mg PO DAILY 05/03/16 Omeprazole Magnesium [Prilosec Otc] 20 mg PO DAILY 05/03/16 Ondansetron HCl [Zofran] 4 mg PO QID PRN 05/03/16
== END 2016-05-04 11:30 | disposition home or self-care (01) ==
LOC: LAB 10:20 → MS 13:51
PROVIDERS: ADMIT Internal Medicine; ATTEND Internal Medicine
DX: R10.13 Epigastric pain (principal); R51 Headache
CPT/HCPCS: 36415; 74177; 80048; 80076; 82150; 83690; 85025; 93005; 96374; 96375; G0378

== ENCOUNTER 2016-09-06 11:05 | Emergency (ER) | payer MEDICARE, BC ==
[2016-09-06 11:12] VITALS: BP 137/74
--- NOTE | 2016-09-06 11:32 | ERNOTE ---
Medical Problem HPI - General Chief Complaint: General Assessment Time Seen by Provider: 09/06/16 11:17 Source: patient Exam Limitations: no limitations - Immun/Allergies/Home Medications Immunizations: IMMUNIZATION HX Immunizations Up to Date Yes History of Influenza Vaccine Yes Hx Pneumococcal Vaccination Yes Allergies/Adverse Reactions: Allergies lorazepam [From Ativan] Allergy (Intermediate, Verified 09/06/16 11:12) Other caused aggitation codeine Allergy (Verified 09/06/16 11:12) Home Medications: HOME MEDICATIONS Gabapentin [Gralise] 900 mg PO Q6H PRN 05/27/12 [Last Taken Unknown] Benzonatate [Tessalon] 200 mg PO TID PRN #30 cap 03/09/15 [Last Taken Unknown] L.acidoph,Paracasei, B.lactis [Probiotic] 1 each PO BID 03/09/15 [Last Taken Unknown] Polyethylene Glycol 3350 [Miralax] 17 gm PO BID 03/09/15 [Last Taken Unknown] Venlafaxine HCl [Effexor Xr] 150 mg PO DAILY 03/09/15 [Last Taken Unknown] clonazePAM [Klonopin] 1 mg PO BID 03/09/15 [Last Taken Unknown] lamoTRIgine [Lamictal] 300 mg PO DAILY 03/09/15 [Last Taken Unknown] traMADol HCL [Ultram] 50 mg PO Q6H PRN 03/09/15 [Last Taken Unknown] Metoprolol Succinate [Toprol Xl] 50 mg PO DAILY 05/03/16 [Last Taken Unknown] Omeprazole Magnesium [Prilosec Otc] 20 mg PO DAILY 05/03/16 [Last Taken Unknown] Ondansetron HCl [Zofran] 4 mg PO QID PRN 05/03/16 [Last Taken Unknown] - History of Present History Narrative: Patient fell backward getting up and hit the left side of her chest against a counter. She denies hitting or head, no loss of consciousness. She has had persistent pain in that area, mild at rest, worse with movement, breathing and coughing. She take tramadol at night for neuropathy which only helped a litte Date (Duration): 08/28/16 Review of Systems - Review of Systems Constitutional: Absent: recent illness, fever EYE: Absent: double vision ENT: Absent: nose congestion Respiratory: Absent: shortness of breath Cardiology: Present: chest pain - chest wall pain Gastrointestinal/Abdominal: Absent: nausea, vomiting, abdominal pain Genitourinary: Present: no symptoms reported Musculoskeletal: Present: See HPI. Absent: back pain, neck pain Neurological: Absent: weakness, numbness - Patient's Past Medical History Patient History - Medical: Anemia, Anxiety, Depression, Fibromyalgia, GERD, Osteoarthritis Patient History - Cardiac/Respiratory: Hypertension Patient History - Cancer: No Hx of Cancer Patient History - Surgical Procedures: Cholecystectomy Patient History - Other: None - Family History Mother Family History - Medical: Rheumatoid Arthritis - Social History Living Situations: home Abuse History: No History of abuse Psych History: No pertinent hx Alcohol Use: none Drug Use: none - Immunizations Immunizations Up to Date: Yes Hx Pneumococcal Vaccination: Yes History of Influenza Vaccine: Yes Physical Exam - Physical Exam General Appearance: Present: wd/wn, alert, mild distress, anxious Eye Exam: Normal inspection: bilateral Neck: Present: normal inspection, nontender, supple Respiratory: Present: no respiratory distress, normal breath sounds, no accessory muscle use, lungs clear, chest tenderness - left chest around midaxillary line lower ribs, no echymosis, no palpable frature Cardiovascular/Chest: Present: regular rate, rhythm, no murmur Gastrointestinal/Abdominal: Present: nontender, nondistended, soft Back Exam: Present: normal inspection, normal range of motion, no CVA tenderness , no vertebral tenderness Extremity Exam: Present: normal inspection, normal range of motion Neurological Exam: Present: alert, oriented, normal mood/affect Skin Exam: Present: normal color, warm/dry ED Progress - Vital Signs Patient's Vital Signs:: I have reviewed the patient's vital signs. Vital Signs: Vital Signs 09/06/16 11:07 Temperature 36.1 C L Pulse Rate 66 Respiratory 12 Rate Blood Pressure 137/74 O2 Sat by Pulse 100 Oximetry - X-Ray X-Ray #1 X-Ray: chest - no displaced rib fracture Interpretation: Interp. by me - Progress/Reassessment Chief Complaint: General Assessment Progress Note-Subjective: 09/06/16 11:26 patient declines offer of pain meds Departure - Departure Clinical Impression: Contusion of rib on left side Qualifiers: Encounter type: initial encounter Qualified Code(s): S20.212A - Contusion of left front wall of thorax, initial encounter Disposition: Home self-care Condition: Good Instructions: Rib Contusion Additional Instructions: take your pain medication as prescribed call your doctor as needed for follow up Referrals: Maribel Rose DO [Primary Care Provider] -
== END 2016-09-06 11:58 | disposition home or self-care (01) ==
LOC: ER 11:05
DX: S20.212A Contusion of left front wall of thorax, initial encounter (principal); W22.09XA Striking against other stationary object, initial encounter; F32.9 Major depressive disorder, single episode, unspecified; F41.9 Anxiety disorder, unspecified

== ENCOUNTER 2016-09-24 13:59 | Emergency (ER) | payer MEDICARE, BC ==
[2016-09-24 14:09] VITALS: BP 145/69
--- OUTSIDE RECORDS SUMMARY | 2016-09-24 14:23 | XMS REPORT | Summary of Care ---
:1945 Author Organization [facility] Address [address] [place] [address] Care Team Providers Name Role Phone Jacinta Mac Primary Care Physician Encounter Date(s): 05/27/16 - 05/27/16 [facility] Marlee Alberts, [address] [place], [place] [address] Discharge Disposition: 01 Discharged to Home or Self Care Attending Physician: Dorian Kyle MD Referring Physician: Jacinta Mac MD Vital Signs Most recent to oldest [Reference Range]: 1 Peripheral Pulse Rate [60-100 bpm] 72 bpm (05/27/16 9:17 AM) Blood Pressure [90-130/60-90 mmHg] 130/80mmHg (05/27/16 9:17 AM) Mean Arterial Pressure, Cuff 97 mmHg (05/27/16 9:17 AM) Most recent to oldest [Reference Range]: 1 Height/Length Measured 157 cm (05/27/16 9:17 AM) Problem List Condition Effective Dates Status Health Status Informant Bacterial overgrowth Active syndrome(Confirmed) Colitis(Confirmed) Active Fibromyalgia(Confirmed) Active Fracture of wrist(Confirmed)1 2007 Active IBS - Irritable bowel Active syndrome(Confirmed) 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 Allergies, Adverse Reactions, Alerts Substance Reaction Severity Status codeine Trouble Breathing Active LORazepam Active Medications Carafate 1 g oral tablet 1 tab(s), Oral, QID, # 120 tab(s), 0 Refill(s), Start Date: 05/14/15 14:17:00 PERINATAL INSTRUCTOR Start Date: 05/14/15 Stop Date: 08/07/15 Status: Completedciprofloxacin 500 mg oral tablet 1 tab(s), Oral, q12hr, # 14 tab(s), 0 Refill(s), Start Date: 04/24/15 14:13:00 PERINATAL INSTRUCTOR Start Date: 04/24/15 Stop Date: 05/14/15 Status: CompletedclonazePAM 1 mg oral tablet 1.5 tab(s), Oral, HS, 0 Refill(s), Start Date: 09/17/13 10:32:00 CDT Start Date: 09/17/13 Status: OrderedColace 50 mg oral capsule 1 cap(s), Oral, BID Start Date: 03/19/14 Status: OrderedDME - Thumb Spica Splint See Instructions, Diagnosis Code: Length of Need: , # 1 EA, 0 Refill(s), 02/14/14 14:46:00 PERINATAL INSTRUCTOR, Supply Special Instructions: Diagnosis Code: Length of Need: Start Date: 02/14/14 Stop Date: 05/14/15 Status: CompletedDME - Thumb Spica Splint See Instructions, Diagnosis Code: Length of Need: , # 1 EA, 0 Refill(s), 02/14/14 14:46:00 PERINATAL INSTRUCTOR, Supply Special Instructions: Diagnosis Code: Length of [...] Refill(s), Start Date: 07/16/15 10:39:00 CDT, Pharmacy: [place], [place] Start Date: 07/16/15 Stop Date: 12/24/15 Status: DiscontinuedFlexeril 5 mg oral tablet 1 tab(s), Oral, HS, # 10 tab(s), 0 Refill(s), Start Date: 06/24/15 10:24:00 CDT , Pharmacy: [place], [place] Start Date: 06/24/15 Stop Date: 07/16/15 Status: Completedgabapentin 100 mg oral capsule 1 cap(s), Oral, BID, 1 cap in the AM and 1 cap in the afternoon, # 60 cap(s), 0 Refill(s), Start Date: 09/29/15 11:39:00 CDT, Pharmacy: [place], [place] Special Instructions: 1 cap in the AM and 1 cap in the afternoon Start Date: 09/29/15 Stop Date: 03/11/16 Status: Completedgabapentin 300 mg oral capsule 1 cap(s), Oral, TID, # 90 cap(s), 3 Refill(s), Start Date: 07/16/15 10:38:00 CDT , Pharmacy: [place], [place] Start Date: 07/16/15 Stop Date: 07/29/15 Status: Completedgabapentin 300 mg oral capsule 5 cap(s), Oral, Daily, Take 1 cap in the morning, 1 cap in the afternoon, and 3 cap at bedtime daily., # 150 cap(s), 3 Refill(s), Start Date: 09/29/15 11:31:58 CDT, Pharmacy: [place], [place] Special Instructions: Take 1 cap in the morning, 1 cap in the afternoon, and 3 cap at bedtime daily. Start Date: 09/29/15 Status: Orderedgabapentin 300 mg oral capsule 6 cap(s), Oral, Daily, Take 1.5 tab in the morning, 1.5 tab in the afternoon, and 3 tabs at bedtime daily., # 180 cap(s), 3 Refill(s), Start Date: 09/26/15 12 :59:14 CDT, Pharmacy: [place], [place] Special Instructions: Take 1.5 tab in the morning, 1.5 tab in the afternoon, and 3 tabs at bedtime daily. Start Date: 09/26/15 Stop Date: 09/29/15 Status: [...] Start Date: 07/29/15 12:07: 24 CDT, Pharmacy: [place], [place] Special Instructions: Take 1 tab in the morning, 1 tab in the afternoon, and 3 tabs at bedtime daily. Start Date: 07/29/15 Stop Date: 09/26/15 Status: CompletedGaviscon 2 tab(s), Chewed, QIDPCHS, 0 Refill(s), Start Date: 01/22/16 9:12:00 PERINATAL INSTRUCTOR Start Date: 01/22/16 Status: Orderedginger BID, 0 Refill(s), Start Date: 01/22/16 9:13:00 PERINATAL INSTRUCTOR Start Date: 01/22/16 Status: OrderedHYDROcodone-acetaminophen 5 mg-325 mg oral tablet 2 tab(s), Oral, q4hr, # 12 tab(s), 0 Refill(s), Start Date: 05/14/15 14:18:00 PERINATAL INSTRUCTOR Start Date: 05/14/15 Stop Date: 05/16/15 Status: CompletedKenalog (office) 40 units, Intra-articular, ONETIME, First Dose: 05/27/16 10:00:00 CDT, Stop Date : 05/27/16 10:00:00 CDT, Diagnosis: Left shoulder pain Start Date: 05/27/16 Stop Date: 05/27/16 Status: CompletedlamoTRIgine 200 mg oral tablet 1.5 tab(s), Oral, Daily, 0 Refill(s), Start Date: 09/17/13 10:33:00 CDT Start Date: 09/17/13 Status: Orderedmeloxicam 15 mg oral tablet 1 tab(s), Oral, Daily, PRN PAIN, # 30 tab(s), 0 Refill(s), Start Date: 02/20/14 16:12:55 PERINATAL INSTRUCTOR, Pharmacy: [place], [place] Start Date: 02/20/14 Stop Date: 06/21/14 Status: Completedmeloxicam 15 mg oral tablet 1 tab(s), Oral, Daily, PRN PAIN, # 30 tab(s), 0 Refill(s), Start Date: 02/18/14 13:20:40 PERINATAL INSTRUCTOR, Pharmacy: [place], [place] Start Date: 02/18/14 Stop Date: 02/20/14 Status: Completedmeloxicam 15 mg oral tablet 1 tab(s), Oral, Daily, PRN pain, # 90 tab(s), 3 Refill(s), Start Date: 06/21/14 11:34:57 CDT, Pharmacy: [place], [place] Start Date: 06/21/14 Stop Date: 04/24/15 Status: Completedmeloxicam 15 mg oral tablet 1 tab(s), Oral, Daily, # 10 tab(s), 0 Refill(s), Start Date: 02/14/14 14:52:00 PERINATAL INSTRUCTOR, Pharmacy: [place], [place] Start Date: 02/14/14 Stop Date: 02/18/14 Status: CompletedMetoprolol Succinate ER 50 mg oral tablet, extended release 1 tab(s), Oral, Daily, # 30 tab(s), 0 Refill(s), Start Date: 03/11/16 10:22:00 PERINATAL INSTRUCTOR Start Date: 03/11/16 Status: OrderedmetroNIDAZOLE 500 mg oral tablet 1 tab(s), Oral, Daily, # 10 tab(s), 0 Refill(s), Start Date: 04/24/15 14:13:00 PERINATAL INSTRUCTOR Start Date: 04/24/15 Stop Date: 05/14/15 Status: [...] tablet 0 Refill(s), Start Date: 04/24/15 14:12:00 PERINATAL INSTRUCTOR Start Date: 04/24/15 Stop Date: 05/14/15 Status: CompletedpredniSONE 5 mg oral tablet See Instructions, 2 tabs po daily for 1 weeks then 1 tab daily for 3 weeks, # 28 tab(s), 0 Refill(s), Start Date: 03/25/15 11:36:00 PERINATAL INSTRUCTOR, Pharmacy: [place], [place] Special Instructions: 2 tabs po daily for 1 weeks then 1 tab daily for 3 weeks Start Date: 03/25/15 Stop Date: 05/08/15 Status: DiscontinuedPriLOSEC 40 mg oral delayed release capsule 1 cap(s), Oral, Daily, # 30 cap(s), 0 Refill(s), Start Date: 05/14/15 14:18:00 PERINATAL INSTRUCTOR Start Date: 05/14/15 Stop Date: 01/22/16 Status: DiscontinuedProbiotic Formula oral capsule 2 cap(s), Oral, Daily Start Date: 03/19/14 Status: OrderedTessalon 200 mg oral capsule 1 cap(s), Oral, TID, # 42 cap(s), 0 Refill(s), Start Date: 05/26/16 8:01:00 CDT , Pharmacy: [place], [place] Start Date: 05/26/16 Stop Date: 06/09/16 Status: OrderedtraMADol 50 mg oral tablet 1 [...] gm, 0 Refill(s), Start Date: 03/25/15 11:37:55 PERINATAL INSTRUCTOR, Pharmacy: [place], [place] Special Instructions: not to exceed 8 grams/day/single joint of upper extremities. Apply grams to effected area Start Date: 03/25/15 Status: OrderedVoltaren 1% topical gel 1 kendrick, Topical, QID, PRN for pain, # 100 gm, 0 Refill(s), Start Date: 05/14/15 10:50:00 PERINATAL INSTRUCTOR Start Date: 05/14/15 Stop Date: 06/24/15 Status: CompletedVoltaren Topical 1% topical gel 1 kendrick, Topical, QID, PRN for pain, not to exceed 8 grams/day/single joint of upper extremities. Apply grams to effected area, # 100 gm, 0 Refill(s), Start Date: 02/14/14 14:53:00 PERINATAL INSTRUCTOR, Pharmacy: [place], [place] Special Instructions: not to exceed 8 grams/day/single joint of upper extremities. Apply grams to effected area Start Date: 02/14/14 Stop Date: 03/25/15 Status: CompletedZofran ODT 4 mg oral tablet, disintegrating 1 tab(s), Oral, q8hr interval, PRN nausea/vomiting, # 10 tab(s), 0 Refill(s), Start Date: 05/14/15 14:17:00 PERINATAL INSTRUCTOR Start Date: 05/14/15 Stop Date: 08/07/15 Status: [...]
--- OUTSIDE RECORDS SUMMARY | 2016-09-24 14:23 | XMS REPORT | Summary of Care ---
:1945 Author Organization [facility] Address [address] [place] [address] Care Team Providers Name Role Phone Jacinta Mac Primary Care Physician Encounter Date(s): 06/08/16 - 06/08/16 [facility] Mar[facility]ts, [address] [place], [place] [address] Discharge Diagnosis: Chronic cough Discharge Diagnosis: Seasonal allergies Discharge Diagnosis: Lesion of vocal cord Discharge Diagnosis: Acute bronchitis Discharge Disposition: Discharged to Home or Self Care Attending Physician: Ismael Parks MD Referring Physician: Ismael Parks MD Vital Signs Most recent to oldest [Reference Range]: 1 Temperature Tympanic [36.6-38.1 DegC] 36.6 DegC (06/08/16 3:25 PM) Temperature C to F 97.9 (06/08/16 3:25 PM) Peripheral Pulse Rate [60-100 bpm] 76 bpm (06/08/16 3:25 PM) Respiratory Rate [12-20 br/min] 14 br/min (06/08/16 3:25 PM) SpO2 [90-100 %] 98 % (06/08/16 3:25 PM) SpO2 Location Right hand (06/08/16 3:25 PM) Blood Pressure [90-130/60-90 mmHg] 166/90mmHg *HI* (06/08/16 3:25 PM) Mean Arterial Pressure, Cuff 115 mmHg (06/08/16 3:25 PM) Most recent to oldest [Reference Range]: 1 Height/Length Measured 157 cm (06/08/16 3:25 PM) Weight Dosing 47.30 kg1 (06/08/16 3:27 PM) Weight Measured 47.3 kg (06/08/16 3:25 PM) BSA Measured 1.45 m2 (06/08/16 3:25 PM) Body Mass Index Measured 19.19 kg/m2 (06/08/16 3:25 PM) 1Result Comment: This result was because the dosing weight was either not entered or it is>30 days old. This result is based off: Weight Measured June 08, 2016 15:25:00 CDT by Remberto Wellington LPN Problem List Condition Effective Dates Status Health Status Informant Acute bronchitis(Confirmed) Active Bacterial overgrowth Active syndrome(Confirmed) Chronic cough(Confirmed) Active Colitis(Confirmed) Active Fibromyalgia(Confirmed) Active Fracture of wrist(Confirmed)1 2007 Active IBS - Irritable bowel Active syndrome(Confirmed) Lesion of vocal cord(Confirmed) Active Miscellaneous(Confirmed)2 Active Seasonal allergies(Confirmed) Active 1right [id number] overgrowth of small intestine Allergies, Adverse Reactions, Alerts Substance Reaction Severity Status codeine Trouble Breathing Active LORazepam Active Medications Carafate 1 g oral tablet 1 tab(s), Oral, QID, # 120 tab(s), 0 Refill(s), Start Date: 05/14/15 14:17:00 VAMPER Start Date: 05/14/15 Stop Date: 08/07/15 Status: Completedciprofloxacin 500 mg oral tablet 1 tab(s), Oral, q12hr, # 14 tab(s), 0 Refill(s), Start Date: 04/24/15 14:13:00 VAMPER Start Date: 04/24/15 Stop Date: 05/14/15 Status: CompletedclonazePAM 1 mg oral tablet 1.5 tab(s), Oral, HS, 0 Refill(s), Start Date: 09/17/13 10:32:00 CDT Start Date: 09/17/13 Status: OrderedColace 50 mg oral capsule 1 cap(s), Oral, BID Start Date: 03/19/14 Status: OrderedDME - Thumb Spica Splint See Instructions, Diagnosis Code: Length of Need: , # 1 EA, 0 Refill(s), 02/14/14 14:46:00 VAMPER, Supply Special Instructions: Diagnosis Code: Length of Need: Start Date: 02/14/14 Stop Date: 05/14/15 Status: CompletedDME - Thumb Spica Splint See Instructions, Diagnosis Code: Length of Need: , # 1 EA, 0 Refill(s), 02/14/14 14:46:00 VAMPER, Supply Special Instructions: Diagnosis Code: Length of [...] Refill(s), Start Date: 07/16/15 10:39:00 CDT, Pharmacy: [place], [place] Start Date: 07/16/15 Stop Date: 12/24/15 Status: DiscontinuedFlexeril 5 mg oral tablet 1 tab(s), Oral, HS, # 10 tab(s), 0 Refill(s), Start Date: 06/24/15 10:24:00 CDT , Pharmacy: [place], [place] Start Date: 06/24/15 Stop Date: 07/16/15 Status: Completedgabapentin 100 mg oral capsule 1 cap(s), Oral, BID, 1 cap in the AM and 1 cap in the afternoon, # 60 cap(s), 0 Refill(s), Start Date: 09/29/15 11:39:00 CDT, Pharmacy: [place], [place] Special Instructions: 1 cap in the AM and 1 cap in the afternoon Start Date: 09/29/15 Stop Date: 03/11/16 Status: Completedgabapentin 300 mg oral capsule 1 cap(s), Oral, TID, # 90 cap(s), 3 Refill(s), Start Date: 07/16/15 10:38:00 CDT , Pharmacy: [place], [place] Start Date: 07/16/15 Stop Date: 07/29/15 Status: Completedgabapentin 300 mg oral capsule 5 cap(s), Oral, Daily, Take 1 cap in the morning, 1 cap in the afternoon, and 3 cap at bedtime daily., # 150 cap(s), 3 Refill(s), Start Date: 09/29/15 11:31:58 CDT, Pharmacy: [place], [place] Special Instructions: Take 1 cap in the morning, 1 cap in the afternoon, and 3 cap at bedtime daily. Start Date: 09/29/15 Status: Orderedgabapentin 300 mg oral capsule 6 cap(s), Oral, Daily, Take 1.5 tab in the morning, 1.5 tab in the afternoon, and 3 tabs at bedtime daily., # 180 cap(s), 3 Refill(s), Start Date: 09/26/15 12 :59:14 CDT, Pharmacy: [place], [place] Special Instructions: Take 1.5 tab in [...] Start Date: 07/29/15 12:07: 24 CDT, Pharmacy: [place], [place] Special Instructions: Take 1 tab in the morning, 1 tab in the afternoon, and 3 tabs at bedtime daily. Start Date: 07/29/15 Stop Date: 09/26/15 Status: CompletedGaviscon 2 tab(s), Chewed, QIDPCHS, 0 Refill(s), Start Date: 01/22/16 9:12:00 VAMPER Start Date: 01/22/16 Status: Orderedginger BID, 0 Refill(s), Start Date: 01/22/16 9:13:00 VAMPER Start Date: 01/22/16 Status: OrderedHYDROcodone-acetaminophen 5 mg-325 mg oral tablet 2 tab(s), Oral, q4hr, # 12 tab(s), 0 Refill(s), Start Date: 05/14/15 14:18:00 VAMPER Start Date: 05/14/15 Stop Date: 05/16/15 Status: CompletedlamoTRIgine 200 mg oral tablet 1.5 tab(s), Oral, Daily, 0 Refill(s), Start Date: 09/17/13 10:33:00 CDT Start Date: 09/17/13 Status: Orderedlisinopril 10 mg oral tablet 1 tab(s), Oral, BID, 0 Refill(s), Start Date: 06/08/16 15:24:00 CDT Start Date: 06/08/16 Status: Orderedmeloxicam 15 mg oral tablet 1 tab(s), Oral, Daily, PRN PAIN, # 30 tab(s), 0 Refill(s), Start Date: 02/20/14 16:12:55 VAMPER, Pharmacy: [facility], [place] Start Date: 02/20/14 Stop Date: 06/21/14 Status: Completedmeloxicam 15 mg oral tablet 1 tab(s), Oral, Daily, PRN PAIN, # 30 tab(s), 0 Refill(s), Start Date: 02/18/14 13:20:40 VAMPER, Pharmacy: [facility], [place] Start Date: 02/18/14 Stop Date: 02/20/14 Status: Completedmeloxicam 15 mg oral tablet 1 tab(s), Oral, Daily, PRN pain, # 90 tab(s), 3 Refill(s), Start Date: 06/21/14 11:34:57 CDT, Pharmacy: [facility], [place] Start Date: 06/21/14 Stop Date: 04/24/15 Status: Completedmeloxicam 15 mg oral tablet 1 tab(s), Oral, Daily, # 10 tab(s), 0 Refill(s), Start Date: 02/14/14 14:52:00 VAMPER, Pharmacy: [facility], [place] Start Date: 02/14/14 Stop Date: 02/18/14 Status: CompletedMetoprolol Succinate ER 50 mg oral tablet, extended release 1 tab(s), Oral, Daily, # 30 tab(s), 0 Refill(s), Start Date: 03/11/16 10:22:00 VAMPER Start Date: 03/11/16 Stop Date: 06/08/16 Status: CompletedmetroNIDAZOLE 500 mg oral tablet 1 tab(s), Oral, Daily, # 10 tab(s), 0 Refill(s), Start Date: 04/24/15 14:13:00 VAMPER Start Date: 04/24/15 Stop Date: 05/14/15 Status: [...] tablet 0 Refill(s), Start Date: 04/24/15 14:12:00 VAMPER Start Date: 04/24/15 Stop Date: 05/14/15 Status: CompletedpredniSONE 5 mg oral tablet See Instructions, 2 tabs po daily for 1 weeks then 1 tab daily for 3 weeks, # 28 tab(s), 0 Refill(s), Start Date: 03/25/15 11:36:00 VAMPER, Pharmacy: [place], [place] Special Instructions: 2 tabs po daily for 1 weeks then 1 tab daily for 3 weeks Start Date: 03/25/15 Stop Date: 05/08/15 Status: DiscontinuedpredniSONE 50 mg oral tablet 1 tab(s), Oral, Daily, # 5 tab(s), 0 Refill(s), Start Date: 06/08/16 15:58:00 CDT, Pharmacy: [place], [place] Start Date: 06/08/16 Stop Date: 06/13/16 Status: OrderedPriLOSEC 40 mg oral delayed release capsule 1 cap(s), Oral, Daily, # 30 cap(s), 0 Refill(s), Start Date: 05/14/15 14:18:00 VAMPER Start Date: 05/14/15 Stop Date: 01/22/16 Status: DiscontinuedProbiotic Formula oral capsule 2 cap(s), Oral, Daily Start Date: 03/19/14 Status: OrderedTessalon 200 mg oral capsule 1 cap(s), Oral, TID, # 42 cap(s), 0 Refill(s), Start Date: 05/26/16 8:01:00 CDT , Pharmacy: [place], [place] Start Date: 05/26/16 Stop Date: 06/08/16 Status: CompletedtraMADol 50 mg oral tablet 1 tab(s), Oral, [...] gm, 0 Refill(s), Start Date: 03/25/15 11:37:55 VAMPER, Pharmacy: [place], [place] Special Instructions: not to exceed 8 grams/day/single joint of upper extremities. Apply grams to effected area Start Date: 03/25/15 Stop Date: 06/08/16 Status: CompletedVoltaren 1% topical gel 1 kendrick, Topical, QID, PRN for pain, # 100 gm, 0 Refill(s), Start Date: 05/14/15 10:50:00 VAMPER Start Date: 05/14/15 Stop Date: 06/24/15 Status: CompletedVoltaren Topical 1% topical gel 1 kendrick, Topical, QID, PRN for pain, not to exceed 8 grams/day/single joint of upper extremities. Apply grams to effected area, # 100 gm, 0 Refill(s), Start Date: 02/14/14 14:53:00 VAMPER, Pharmacy: [place], [place] Special Instructions: not to exceed 8 grams/day/single joint of upper extremities. Apply grams to effected area Start Date: 02/14/14 Stop Date: 03/25/15 Status: CompletedZithromax 250 mg oral tablet 1 packet(s), Oral, Per Package Label, as directed on package labeling, # 6 tab(s ), 0 Refill(s), Start Date: 06/08/16 15:58:00 CDT, Pharmacy: [place], [place] Special Instructions: as directed on package labeling Start Date: 06/08/16 Stop Date: 06/13/16 Status: OrderedZofran ODT 4 mg oral tablet, disintegrating 1 tab(s), Oral, q8hr interval, PRN nausea/vomiting, # 10 tab(s), 0 Refill(s), Start Date: 05/14/15 14:17:00 VAMPER Start Date: 05/14/15 Stop Date: 08/07/15 Status: [...]
[2016-09-24 14:52] LABS: Urine Bilirubin Negative (NEGATIVE); Urine Blood Negative /ul (NEGATIVE); Urine Ketone Negative (NEGATIVE); Urine Nitrite Negative (NEGATIVE); Urine Protein Negative (NEGATIVE); Urine Urobilinogen Normal (NORMAL)
[2016-09-24 15:01] LABS: Urine Appearance Clear; Urine Color Yellow
[2016-09-24 15:02] LABS: Urine Amorphous Sediment Many - 3+ (NONE-FEW); Urine Bacteria None Seen; Urine RBC None Seen /hpf (0-5); Urine WBC None Seen /hpf (0-5)
--- NOTE | 2016-09-24 15:17 | ERNOTE ---
Back Pain ER HPI Date of Service: 09/24/16 Presenting Symptoms: injury/pain to back Time Seen by Provider: 09/24/16 14:14 Source: patient Exam Limitations: no limitations Immunizations: IMMUNIZATION HX Immunizations Up to Date Yes History of Influenza Vaccine No Hx Pneumococcal Vaccination No Allergies/Adverse Reactions: Allergies lorazepam [From Ativan] Allergy (Intermediate, Verified 09/06/16 11:12) Other caused aggitation codeine Allergy (Verified 09/06/16 11:12) Home Medications: HOME MEDICATIONS Gabapentin [Gralise] 900 mg PO Q6H PRN 05/27/12 [Last Taken Unknown] Venlafaxine HCl [Effexor Xr] 150 mg PO DAILY 03/09/15 [Last Taken Unknown] clonazePAM [Klonopin] 1 mg PO BID 03/09/15 [Last Taken Unknown] lamoTRIgine [Lamictal] 300 mg PO DAILY 03/09/15 [Last Taken Unknown] traMADol HCL [Ultram] 50 mg PO Q6H PRN 03/09/15 [Last Taken Unknown] HYDROcodone/ACETAMINOPHEN [[place] 5-325] 1 tab PO Q4H PRN #40 tab 09/24/16 [Last Taken Unknown] Methocarbamol [Robaxin] 500 mg PO BID #20 tablet 09/24/16 [Last Taken Unknown] Narrative: patient feel a few weeks ago, had x-rays of ribs, now has lumbar pain Timing: Reports: constant Quality/Severity: Reports: moderate Location of pain: Reports: lower back Activities at Onset: Reports: activity Recent Injury?: Reports: yes Possible Precipitating Factor: Reports: fall/near fall Modifying Factors - (Improves): Reports: nothing Modifying Factors - (Worsens): Reports: movement to right, movement to left, movement flexion Associated Symptoms: Reports: none Review of Systems - Review of Systems Constitutional: Present: no symptoms reported EYE: Present: no symptoms reported ENT: Present: no symptoms reported Respiratory: Present: no symptoms reported Cardiology: Present: no symptoms reported Gastrointestinal/Abdominal: Present: no symptoms reported Genitourinary: Present: no symptoms reported Musculoskeletal: Present: muscle pain, muscle stiffness Skin: Present: no symptoms reported Neurological: Present: no symptoms reported Endocrine: Present: no symptoms reported Hematologic/Lymphatic: Present: no symptoms reported Psych: Present: no symptoms reported All Other Systems: All systems neg except as marked - Patient's Past Medical History Patient History - Medical: Anemia, Anxiety, Depression, Fibromyalgia, GERD, Osteoarthritis Patient History - Cardiac/Respiratory: No pertinent hx, Hypertension Patient History - Cancer: No Hx of Cancer Patient History - Surgical Procedures: Back Surgery, Cholecystectomy Patient History - Other: None LMP (females 10-50): Menopausal - Family History Family History:: no untoward family reactions to anesthesia, no familial bleeding tendencies - Family History Mother Family History - Medical: Rheumatoid Arthritis - Social History Living Situations: home Abuse History: No History of abuse Psych History: No pertinent hx Smoking Status: Never smoker Have you smoked in the past 12 months: No Do you dip or chew tobacco: No Alcohol Use: none Drug Use: none - Immunizations Immunizations Up to Date: Yes Hx Pneumococcal Vaccination: No History of Influenza Vaccine: No Physical Exam - Physical Exam General Appearance: Present: alert, mild distress Head Exam: Present: normal inspection, no evidence of injury Eye Exam: Normal inspection: bilateral, PERRL: bilateral, EOMI: bilateral Ears, Nose, Throat: Present: normal ENT inspection Neck: Present: normal inspection, nontender Respiratory: Present: no respiratory distress, normal breath sounds, no accessory muscle use, chest nontender, lungs clear Cardiovascular/Chest: Present: no murmur, normal peripheral pulses Gastrointestinal/Abdominal: Present: normal bowel sounds, nontender, nondistended, soft, no organomegaly Back Exam: Present: vertebral tenderness, decreased range of motion, muscle spasm - in lumbar region Extremity Exam: Present: normal inspection, normal range of motion, no edema Neurological Exam: Present: alert, oriented, normal mood/affect, no motor/ sensory deficits DTR: N=norm/NB=norm/brisk/A=abs/DD=dull/dimin/HC=hyperactive: Bicep (R): Normal , Bicep (L): Normal, Tricep (R): Normal, Tricep (L): Normal, Knee (R): Normal, Knee (L): Normal Skin Exam: Present: normal color, warm/dry Lymphatic Exam: Present: no adenopathy ED Progress - Vital Signs Vital Signs: Vital Signs 09/24/16 14:04 Temperature 37.0 C Pulse Rate 65 Respiratory 16 Rate Blood Pressure 145/69 O2 Sat by Pulse 99 Oximetry - X-Ray X-Ray #1 X-Ray: lumbosacral - degenerative changes of lumbar spine, no acute fx Interpretation: Discd w/ radiologist - Progress/Reassessment Chief Complaint: Back Pain Progress:: Unchanged - Transfer of Care Expected Disposition: Discharge Departure Clinical Impression: Back pain at L4-L5 level - Departure Disposition: Home self-care Condition: Fair Instructions: Low Back Sprain With Rehab-[facility] Referrals: Maribel Rose DO [Primary Care Provider] - Prescriptions: HYDROcodone/ACETAMINOPHEN [[place] 5-325] 1 tab PO Q4H PRN #40 tab PRN Reason: Pain Methocarbamol [Robaxin] 500 mg PO BID #20 tablet
== END 2016-09-24 15:24 | disposition home or self-care (01) ==
LOC: ER 13:59
DX: M54.5 Low back pain (principal)